=== PATIENT | female | born 1945 | race American Indian/Alaskan Native ===

== ENCOUNTER 2016-10-17 10:52 | Day surgery (SDC) | payer MEDICARE ==
[2016-10-17] MEDS ORDERED: NACL 0.9% 1000 ML 1,000 ML ONE (11:10)
[2016-10-17] MEDS ORDERED: NORMODYNE IV ONE (11:44)
--- NOTE | 2016-10-17 12:27 | Anesthesia Day of Surgery ---
Anesthesia Day of Surgery - Day of Surgery Patient Examined: Yes Patient H&P Reviewed: Yes Patient is NPO: Yes Beta Blockers: Yes
--- NOTE | 2016-10-17 12:29 | Anesthesia Consultation ---
Anesthesia Consult and Med Hx Date of service: 10/17/16 - Airway Anesthetic Teeth Evaluation: Dentures, Edentulous ROM Head & Neck: Adequate Mental/Hyoid Distance: Adequate Mallampati Class: Class II Intubation Access Assessment: Probably Good - Pulmonary Exam CTA: Yes - Cardiac Exam Cardiac Exam: RRR - Pre-Operative Health Status ASA Pre-Surgery Classification: ASA3 Proposed Anesthetic Plan: MAC - Pulmonary Hx Smoking: No Hx Asthma: Yes - Cardiovascular System Hx Hypertension: Yes Hx Heart Attack/AMI: No - Central Nervous System Hx Seizures: No CVA: No Hx Psychiatric Problems: Yes - Hematic Hx Anemia: Yes Hx Sickle Cell Disease: Yes ("NO CRISIS IN PAST") - Other Systems Hx Alcohol Use: No Hx Substance Use: No Hx Cancer: No - Additional Comments Anesthesia Medical History Comments: NAC
[2016-10-17] MEDS ORDERED: DIPRIVAN 10 MG/ML IV ONE (12:58)
[2016-10-17] MEDS ORDERED: NACL 0.9% 1000 ML 1,000 ML IV SCH (13:00)
--- NOTE | 2016-10-17 13:46 | Operative Report ---
Operative Report Operative Report: Date of procedure: 10/17/2016 Procedure: Esophagogastroduodenoscopy with multiple Mucosal biopsies. Attending physician: Fredy Self MD Wood Polisher: Fredy Self MD Indication: Patient is a 71-year-old female who presents history of recurrent epigastric pain with nausea and vomiting. An upper endoscopy is done to evaluate patient so that treatment may be directed based on the findings. 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 This procedure is done under these circumstances with her worsening symptoms, to assess patient so that treatment may be directed based on the findings. Consent: Informed consent was obtained after advising the patient and family regarding nature of this procedure, its indications, potential benefits as well as possible complications including but not limited to bleeding perforation and adverse reaction to medication, infection as well as other cardiopulmonary complications. An informed written and verbal consent was then obtained after due opportunity was provided for questions and answers. Monitoring: Patient was monitored continuously with pulse oximetry and electrocardiographic recordings as well as blood pressure recordings. Vital signs remained stable throughout this procedure with no untoward events. Preoperative assessment: Patient was assessed immediately prior to this procedure for capacity to tolerate monitored anesthesia care and moderate sedation as well as general anesthesia. Patient's ASA classification is 2, Mallampati class is 2, Hyomental distance is 3. Instrument: WindSimn video endoscope Medications: Propofol, given intravenously in divided doses. For details please refer to anesthesia records. Description of procedure: Patient was placed in the left lateral decubitus position after achieving sedation, the endoscope was introduced into the esophagus under direct vision. It was then advanced beyond the esophagus into the stomach . Patient was noted to have partial gastrectomy. Patient was noted to have a Billroth II anastomosis. Both limbs of the anastomosis were explored. The endoscope was subsequently withdrawn with careful inspection of all mucosal surfaces with the following findings. Findings: There was irregularity of the Z line. There was a nodule at the gastroesophageal junction which was biopsied. There was a nodule at the gastrojejunostomy anastomosis. This was again biopsied. Compared to her previous endoscopy, the stomach appeared fairly well-preserved and a prior CVA of bile gastritis has not record. The perianastomotic area appeared otherwise normal. Both the afferent and efferent limbs of the anastomosis appeared normal. Impression: Irregular Z line. Gastroesophageal junction nodule status post biopsies. Normal gastrojejunostomy anastomosis. Gastro jejunostomy anastomotic nodule status post biopsies. Plan: Continue treatment with bile acids sequestrants as patient has been doing. Continue to use antiemetics. Follow pathology report. If patient's symptoms do not improve, we may obtain an upright GI series. Additional recommendations will be made in follow-up.
--- NOTE | 2016-10-17 13:49 | Discharge Summary ---
Short Stay Discharge Plan Activity: advance as tolerated (over) Weight Bearing Status: Weight Bear as Tolerated (date) Diet: regular
--- NOTE | 2016-10-17 14:00 | Post Anesthesia Evaluation ---
- Post Anesthesia Evaluation Patient Participated: Yes Airway Patent: Yes Stable Respiratory Function: Yes Temp > 96.8F: Yes Pain Manageable: Yes Adequeate Hydration: Yes Anesthesia Complications: No Block Receding Appropriately: Not Applicable
[2016-10-17 14:04] VITALS: BP 170/72
== END 2016-10-17 10:53 | disposition home or self-care (01) ==
LOC: GIO 10:52
PROVIDERS: ATTEND Internal Medicine Gastroenterology
DX: K29.50 Unspecified chronic gastritis without bleeding (principal); K22.8 Other specified diseases of esophagus; K21.0 Gastro-esophageal reflux disease with esophagitis; J45.909 Unspecified asthma, uncomplicated; I10 Essential (primary) hypertension; D57.1 Sickle-cell disease without crisis; Z90.3 Acquired absence of stomach [part of]; Z98.0 Intestinal bypass and anastomosis status; Z88.8 Allergy status to other drugs, medicaments and biological substances; Z88.5 Allergy status to narcotic agent; Z88.6 Allergy status to analgesic agent; Z91.041 Radiographic dye allergy status; Z79.899 Other long term (current) drug therapy; Z80.3 Family history of malignant neoplasm of breast; Z82.49 Family history of ischemic heart disease and other diseases of the circulatory system; Z81.8 Family history of other mental and behavioral disorders
CPT/HCPCS: 43239; 88305; 88342; J2704; J7030

== ENCOUNTER 2018-10-29 10:58 | Day surgery (SDC) | payer MEDICARE ==
[2018-10-29] MEDS ORDERED: NACL 0.9% 1000 ML 1,000 ML IV SCH (13:10)
--- NOTE | 2018-10-29 13:16 | Anesthesia Consultation ---
Anesthesia Consult and Med Hx - Airway Anesthetic Teeth Evaluation: Good, Chipped ROM Head & Neck: Adequate Mental/Hyoid Distance: Adequate Mallampati Class: Class II Intubation Access Assessment: Probably Good - Pulmonary Exam CTA: Yes - Cardiac Exam Cardiac Exam: RRR - Pre-Operative Health Status ASA Pre-Surgery Classification: ASA2 Proposed Anesthetic Plan: MAC - Pulmonary Hx Smoking: No Hx Asthma: Yes - Cardiovascular System Hx Hypertension: Yes Hx Heart Attack/AMI: No - Central Nervous System Hx Seizures: No CVA: No Hx Psychiatric Problems: Yes - Hematic Hx Anemia: Yes Hx Sickle Cell Disease: Yes ("NO CRISIS IN PAST") - Other Systems Hx Alcohol Use: No Hx Substance Use: No Hx Cancer: No
[2018-10-29 13:31] VITALS: BP 125/86
[2018-10-29] MEDS ORDERED: DIPRIVAN 10 MG/ML IV ONE ×2 (14:54→14:55)
== END 2018-10-29 10:59 | disposition home or self-care (01) ==
LOC: GIO 10:58
PROVIDERS: ATTEND Internal Medicine Gastroenterology
DX: R10.84 Generalized abdominal pain (principal); R63.4 Abnormal weight loss; I20.8 Other forms of angina pectoris; I10 Essential (primary) hypertension; H40.9 Unspecified glaucoma; J45.909 Unspecified asthma, uncomplicated; K21.9 Gastro-esophageal reflux disease without esophagitis; M19.90 Unspecified osteoarthritis, unspecified site; F32.9 Major depressive disorder, single episode, unspecified; Z98.890 Other specified postprocedural states; Z91.041 Radiographic dye allergy status; Z88.5 Allergy status to narcotic agent; Z88.8 Allergy status to other drugs, medicaments and biological substances; Z79.899 Other long term (current) drug therapy; Z98.49 Cataract extraction status, unspecified eye; Z98.51 Tubal ligation status; Z86.2 Personal history of diseases of the blood and blood-forming organs and certain disorders involving the immune mechanism; Z53.8 Procedure and treatment not carried out for other reasons
CPT/HCPCS: J2704; J7030

== ENCOUNTER 2018-10-29 15:40 | Inpatient (IN) | payer MEDICARE ==
--- NOTE | 2018-10-29 15:59 | Emergency Department Report ---
Blank Doc - Documentation Documentation: This is a 73-year-old female that presents with uncontrolled HTN. Stated had an EGD and procedure stopped due to abnormal PVCs. This initial assessment/diagnostic orders/clinical plan/treatment(s) is/are subject to change based on patient's health status, clinical progression and re- assessment by fellow clinical providers in the ED. Further treatment and workup at subsequent clinical providers discretion. Patient/guardians urged not to elope from the ED as their condition may be serious if not clinically assessed and managed. Initial orders include: 1- Patient sent to MAIN ED for further evaluation and treatment 2- labs 3- UA 4- EKG
[2018-10-29 16:21] LABS: Basophils % (Auto) 0.9 % (0.0-1.8); Eosinophils # (Auto) 0.1 K/mm3 (0.0-0.4); Eosinophils % (Auto) 2.1 % (0.0-4.3); Hematocrit 43.5 % (30.3-42.9); Hemoglobin 14.2 gm/dl (10.1-14.3); Mean Corpuscular HGB Conc 33 % (30-34); Mean Corpuscular Volume 90 fl (79-97); Monocytes # (Auto) 0.2 K/mm3 (0.0-0.8); Monocytes % (Auto) 7.1 % (0.0-7.3); Platelet Count 181 K/mm3 (140-440); Red Blood Count 4.85 M/mm3 (3.65-5.03); Red Cell Distribution Width 16.6 % (13.2-15.2)
[2018-10-29 16:31] LABS: INR 1.03 (0.87-1.13)
[2018-10-29 16:32] LABS: Partial Thromboplastin Time 30.7 Sec. (24.2-36.6)
[2018-10-29 16:44] LABS: BUN/Creatinine Ratio 13; Blood Urea Nitrogen 9 mg/dL (7-17); Calcium 10.2 mg/dL (8.4-10.2); Hemolysis Index 5
[2018-10-29] MEDS ORDERED: APRESOLINE IV ONE (16:58)
--- NOTE | 2018-10-29 17:03 | Emergency Department Report ---
ED General Adult HPI - General Chief complaint: Arrhythmia/Palpitations Stated complaint: HIGH BP Time Seen by Provider: 10/29/18 15:57 Source: patient, family Mode of arrival: Wheelchair Limitations: No Limitations - History of Present Illness Initial comments: 73-year-old female with history of hypertension, hypercholesterolemia, CVA presents to ED for abnormal heart rhythm. Patient was about to undergo an EGD, however that the seizure was stopped due to the patient's rhythm. Patient states at that time, she experienced left-sided chest pain and palpitations for approximately 5-10 minutes. Patient also hypertensive, reported she did not take her blood pressure medication today due to being nothing by mouth for the procedure. Patient states she normally takes amlodipine and lisinopril for blood pressure. It is unclear whether the patient was sent and the EGD there is no paperwork that accompanies her, however, patient's EKG here in the ED shows bigeminy. -: This afternoon Location: chest Radiation: non-radiation Quality: sharp Consistency: now resolved Improves with: none Worsens with: none Associated Symptoms: denies: diaphoresis, nausea/vomiting, shortness of breath - Related Data Home Medications Medication Instructions Recorded Confirmed Last Taken Sucralfate [Carafate] 1 gm PO Q6HR 10/17/16 10/29/18 10/28/18 AtorvaSTATin [Lipitor] 40 mg PO QHS 10/29/18 10/29/18 10/28/18 Folic Acid [Folvite] 1 mg PO QDAY 10/29/18 10/29/18 10/28/18 Lisinopril [Zestril] 20 mg PO QDAY 10/29/18 10/29/18 10/28/18 Metoclopramide [Reglan] 10 mg PO TID 10/29/18 10/29/18 10/28/18 amLODIPine [Norvasc] 10 mg PO DAILY 10/29/18 10/29/18 10/28/18 cloNIDine [Catapres] 0.2 mg PO TID 10/29/18 10/29/18 10/28/18 Allergies Allergy/AdvReac Type Severity Reaction Status Date / Time Iodine and Iodide Containing Allergy Intermediate Unknown Verified 10/29/18 15:44 Produc tramadol Allergy Intermediate Unknown Verified 10/29/18 15:44 codeine Allergy Anaphylaxis Verified 10/29/18 15:44 IVP DYE Allergy Intermediate Unknown Uncoded 10/14/16 11:54 ED Review of Systems ROS: Stated complaint: HIGH BP Other details as noted in HPI Comment: All other systems reviewed and negative Constitutional: denies: chills, fever Respiratory: denies: shortness of breath Cardiovascular: chest pain, palpitations Gastrointestinal: denies: nausea, vomiting ED Past Medical Hx - Past Medical History Hx Hypertension: Yes Hx Heart Attack/AMI: No Hx GERD: Yes Hx Sickle Cell Disease: Yes ("NO CRISIS IN PAST") Hx Arthritis: Yes Hx Seizures: No Hx Asthma: Yes - Social History Smoking Status: Never Smoker Substance Use Type: None - Medications Home Medications: Home Medications Medication Instructions Recorded Confirmed Last Taken Type Sucralfate [Carafate] 1 gm PO Q6HR 10/17/16 10/29/18 10/28/18 History AtorvaSTATin [Lipitor] 40 mg PO QHS 10/29/18 10/29/18 10/28/18 History Folic Acid [Folvite] 1 mg PO QDAY 10/29/18 10/29/18 10/28/18 History Lisinopril [Zestril] 20 mg PO QDAY 10/29/18 10/29/18 10/28/18 History Metoclopramide [Reglan] 10 mg PO TID 10/29/18 10/29/18 10/28/18 History amLODIPine [Norvasc] 10 mg PO DAILY 10/29/18 10/29/18 10/28/18 History cloNIDine [Catapres] 0.2 mg PO TID 10/29/18 10/29/18 10/28/18 History ED Physical Exam - General Limitations: No Limitations General appearance: alert, in no apparent distress - Head Head exam: Present: atraumatic, normocephalic - Eye Eye exam: Present: normal appearance, PERRL, EOMI - ENT ENT exam: Present: mucous membranes moist - Neck Neck exam: Present: normal inspection - Respiratory Respiratory exam: Present: normal lung sounds bilaterally. Absent: respiratory distress - Cardiovascular Cardiovascular Exam: Present: regular rate, normal rhythm - GI/Abdominal GI/Abdominal exam: Present: soft. Absent: distended, tenderness - Extremities Exam Extremities exam: Present: normal inspection - Neurological Exam Neurological exam: Present: alert, oriented X3 - Psychiatric Psychiatric exam: Present: normal affect, normal mood - Skin Skin exam: Present: warm, dry, intact, normal color ED Course Vital Signs 10/29/18 10/29/18 10/29/18 15:58 16:32 16:35 Temperature 97.6 F Pulse Rate 79 63 Respiratory 18 13 14 Rate Blood Pressure 206/90 195/78 O2 Sat by Pulse 99 100 Oximetry 10/29/18 10/29/18 10/29/18 17:01 17:31 18:01 Temperature Pulse Rate 60 48 L 41 L Respiratory 16 14 17 Rate Blood Pressure 196/77 193/67 186/66 O2 Sat by Pulse 99 73 L 99 Oximetry 10/29/18 10/29/18 10/29/18 18:31 19:01 19:31 Temperature Pulse Rate 47 L 60 54 L Respiratory 15 19 17 Rate Blood Pressure 180/73 183/73 180/73 O2 Sat by Pulse 99 Oximetry 10/29/18 10/29/18 19:50 20:35 Temperature 97.5 F L Pulse Rate 76 33 L Respiratory 16 16 Rate Blood Pressure 180/73 180/81 O2 Sat by Pulse 100 Oximetry - Reevaluation(s) Reevaluation #1: 10/29/18 17:03 Pt not currently in bigeminy on the monitor. She is in sinus rhythm w/ occasional PVCs ED Medical Decision Making - Lab Data Result diagrams: 10/29/18 16:07 10/29/18 16:01 - EKG Data -: EKG Interpreted by Nv EKG shows normal: sinus rhythm, QRS complexes Rate: normal - EKG Data Interpretation: other (ventricular bigeminy present) - Radiology Data Radiology results: report reviewed, image reviewed - Medical Decision Making 73-year-old female presents to the ED due to abnormal heart rhythm and severe hypertension during EGD. Patient reported experiencing palpitations and chest pain at that time. Currently resolved. Patient initially in bigeminy upon ED arrival. Repeat EKG shows resolution of bigeminy, no ST changes, with occasional PVCs. Troponin is normal. Patient given hydralazine for elevated blood pressure. Will admit to hospitalist for further management. - Differential Diagnosis ACS, arrythmia, pulm edema Critical care attestation.: If time is entered above; I have spent that time in minutes in the direct care of this critically ill patient, excluding procedure time. ED Disposition Clinical Impression: Bigeminy, Acute chest pain, Hypertensive urgency Disposition: [id number] OP ADMIT IP TO THIS HOSP Is pt being admited?: Yes Condition: Stable Time of Disposition: 18:11
--- NOTE | 2018-10-29 17:03 | XRay Report ---
CHEST 2 VIEWS INDICATION / CLINICAL INFORMATION: Chest Pain. COMPARISON: None available. FINDINGS: SUPPORT DEVICES: None. HEART / MEDIASTINUM: No significant abnormality. LUNGS / PLEURA: No significant pulmonary or pleural abnormality. No pneumothorax. ADDITIONAL FINDINGS: No significant additional findings. IMPRESSION: No acute findings. Signer Name: Daniel Bolivar MD Signed: 10/29/2018 4:58 PM Workstation Name: [id number]
--- NOTE | 2018-10-29 18:31 | History and Physical Report ---
History of Present Illness Chief complaint: My heart is beating funny History of present illness: 73 YO Female with HTN, HLD, CVA, GERD, OA, Severe Malnutrition, Asthma presents to ED for evaluation. Pt was about to undergo an EGD, when the patient experienced sudden onset of pain in her chest as well as chest palpitations. Pt subsequently transported to ED for evaluation. Pt states that her pain was 4/10, substernal, nonradiating, not worsened with exertion, not relieved with rest, sharp. Pt denies fever, chills, productive cough, shortness of breath, BRBPR, skin rash, recent ill contacts, unilateral leg pain/calf pain, hemoptysis, individual/family history of DVT/PE. Pt found to have symptoms consistent with Angina as well as diastolic CHF. Pt admitted to telemetry. Cardiology consulted in ED. NO prior admission for review. No medication listed for reconciliation at time of admission. Past History Past Medical History: arthritis, GERD, hypertension, hyperlipidemia, stroke Past Surgical History: No surgical history, Other (reviewed) Social history: , lives with family Family history: hypertension Medications and Allergies Allergies Allergy/AdvReac Type Severity Reaction Status Date / Time Iodine and Iodide Containing Allergy Intermediate Unknown Verified 10/29/18 15:44 Produc tramadol Allergy Intermediate Unknown Verified 10/29/18 15:44 codeine Allergy Anaphylaxis Verified 10/29/18 15:44 IVP DYE Allergy Intermediate Unknown Uncoded 10/14/16 11:54 Home Medications Medication Instructions Recorded Confirmed Last Taken Type Sucralfate [Carafate] 1 gm PO Q6HR 10/17/16 10/29/18 10/28/18 History AtorvaSTATin [Lipitor] 40 mg PO QHS 10/29/18 10/29/18 10/28/18 History Folic Acid [Folvite] 1 mg PO QDAY 10/29/18 10/29/18 10/28/18 History Lisinopril [Zestril] 20 mg PO QDAY 10/29/18 10/29/18 10/28/18 History Metoclopramide [Reglan] 10 mg PO TID 10/29/18 10/29/18 10/28/18 History amLODIPine [Norvasc] 10 mg PO DAILY 10/29/18 10/29/18 10/28/18 History cloNIDine [Catapres] 0.2 mg PO TID 10/29/18 10/29/18 10/28/18 History Review of Systems Constitutional: no weight loss, no weight gain, no fever, no chills Ears, nose, mouth and throat: no ear pain, no ear discharge, no tinnitis, no decreased hearing, no nose pain, no nasal congestion, no nasal discharge Breasts: no change in shape, no swelling, no mass Cardiovascular: chest pain, palpitations, no lightheadedness, no claudication, no phlebitis Respiratory: no cough, no cough with sputum, no excessive sputum, no hemoptysis Gastrointestinal: no abdominal pain, no nausea, no vomiting, no diarrhea, no constipation Genitourinary Female: no pelvic pain, no dysuria, no stress incontinence, no post void dribbling, no incomplete emptying Rectal: no pain, no incontinence, no bleeding Musculoskeletal: no neck stiffness, no neck pain, no shooting arm pain, no arm numbness/tingling, no low back pain, no shooting leg pain Integumentary: no rash, no redness, no sores Psychiatric: no anxiety, no memory loss, no change in sleep habits, no sleep disturbances, no insomnia, no change in libido Endocrine: no heat intolerance, no excessive thirst, no polydipsia, no polyuria, no nocturia Hematologic/Lymphatic: no easy bruising, no easy bleeding, no lymphadenopathy, no lymphedema Allergic/Immunologic: no urticaria, no allergic rhinitis, no wheezing, no persistent infections Exam - Constitutional Vitals: Temp Pulse Resp BP Pulse Ox 97.6 F 41 L 17 186/66 99 10/29/18 15:58 10/29/18 18:01 10/29/18 18:01 10/29/18 18:01 10/29/18 18:01 General appearance: Present: mild distress, cachectic - EENT Eyes: Present: PERRL ENT: hearing intact, clear oral mucosa - Neck Neck: Present: supple, normal ROM - Respiratory Respiratory effort: normal Respiratory: bilateral: CTA - Cardiovascular Heart Sounds: Present: S1 & S2. Absent: rub, click - Extremities Extremities: pulses symmetrical, No edema Peripheral Pulses: within normal limits - Abdominal General gastrointestinal: Present: soft, non-tender, non-distended, normal bowel sounds Female genitourinary: Present: normal - Integumentary Integumentary: Present: clear, warm, dry - Musculoskeletal Musculoskeletal: gait normal, strength equal bilaterally - Psychiatric Psychiatric: appropriate mood/affect, intact judgment & insight - Neurologic Neurologic: CNII-XII intact, moves all extremities Results - Labs CBC & Chem 7: 10/29/18 16:07 10/29/18 16:01 Labs: Abnormal lab results 10/29/18 10/29/18 Range/Units 16:01 16:07 WBC 2.7 L (4.5-11.0) K/mm3 Hct 43.5 H (30.3-42.9) % RDW 16.6 H (13.2-15.2) % Lymph % (Auto) 38.0 H (13.4-35.0) % Lymph # 1.0 L (1.2-5.4) K/mm3 Seg Neutrophils # 1.4 L (1.8-7.7) K/mm3 Chloride 107.6 H (98-107) mmol/L Glucose 127 H (65-100) mg/dL Assessment and Plan - Patient Problems (1) Angina at rest Current Visit: Yes Status: Acute Plan to address problem: Admit to telemetry, serial cardiac enzymes, ekg, stress test, cardiology consulted, d dimer, morphine, supplemental oxygen,nitro, aspirin, PPI therapy (2) Diastolic CHF Current Visit: Yes Status: Acute Qualifiers: Heart failure chronicity: acute Qualified Code(s): I50.31 - Acute diastolic (congestive) heart failure Plan to address problem: Admit to telemetry, echo, strict I/O, daily weight, bnp, monitor uop q shift, afterload reduction, chest x ray. (3) Hypertensive urgency Current Visit: No Status: Acute Plan to address problem: monitor BP q shift, continue medical management. (4) Severe malnutrition Current Visit: Yes Status: Acute Plan to address problem: Encourage increased protein intake, dietary supplementation (5) DVT prophylaxis Current Visit: Yes Status: Acute Plan to address problem: SCD to BLE while in bed, prophylactic lovenox
[2018-10-29] MEDS ORDERED: TYLENOL PO PRN (18:38)
[2018-10-29] MEDS ORDERED: BABY ASPIRIN PO STA ×2 (18:38→19:05)
[2018-10-29] MEDS ORDERED: ZOFRAN IV PRN (18:38)
[2018-10-29] MEDS ORDERED: SODIUM CHLORIDE FLUSH SYRINGE 10 ML IV PRN ×2 (18:38)
[2018-10-29] MEDS ORDERED: NITROSTAT SL PRN (18:38)
[2018-10-29] MEDS ORDERED: REGLAN 10 MG PO PRN (18:40)
[2018-10-29] MEDS ORDERED: REGLAN PO PRN (18:47)
[2018-10-29] MEDS ORDERED: BABY ASPIRIN ONE (19:34)
[2018-10-29] MEDS ORDERED: CATAPRES ONE (19:34)
[2018-10-29 19:45] LABS: Chol/HDL Ratio 2.24 %
[2018-10-29] MEDS: CATAPRES PO SCH ×2 (19:45→20:01)
[2018-10-29] MEDS ORDERED: CLONIDINE HCL 0.2 MG PO SCH (20:00)
[2018-10-29] MEDS: SODIUM CHLORIDE FLUSH SYRINGE 10 ML IV SCH (21:01)
[2018-10-29] MEDS: CARAFATE PO SCH (23:55)
[2018-10-30] MEDS: CARAFATE PO SCH ×2 (05:07→16:38)
[2018-10-30 06:03] LABS: Basophils % (Auto) 0.9 % (0.0-1.8); Eosinophils # (Auto) 0.1 K/mm3 (0.0-0.4); Eosinophils % (Auto) 4.2 % (0.0-4.3); Hemoglobin 13.2 gm/dl (10.1-14.3); Lymphocytes % (Auto) 37.2 % (13.4-35.0); Mean Corpuscular HGB Conc 31 % (30-34); Mean Corpuscular Volume 92 fl (79-97); Monocytes # (Auto) 0.2 K/mm3 (0.0-0.8); Monocytes % (Auto) 9.3 % (0.0-7.3); Platelet Count 150 K/mm3 (140-440); Red Blood Count 4.56 M/mm3 (3.65-5.03); Red Cell Distribution Width 16.6 % (13.2-15.2)
[2018-10-30 06:38] LABS: Alanine Aminotransferase 9 units/L (7-56); Albumin 3.6 g/dL (3.9-5); BUN/Creatinine Ratio 13; Blood Urea Nitrogen 10 mg/dL (7-17); Calcium 9.7 mg/dL (8.4-10.2); Hemolysis Index 10
[2018-10-30] MEDS ORDERED: LEXISCAN IV ONE ×2 (06:55→12:00)
[2018-10-30] MEDS ORDERED: CATAPRES PO SCH (08:00)
[2018-10-30] MEDS: REGLAN PO SCH ×2 (08:00→17:02)
[2018-10-30] MEDS: CATAPRES PO SCH ×2 (08:00→16:39)
[2018-10-30] MEDS ORDERED: FOLVITE PO SCH ×2 (10:00)
[2018-10-30] MEDS ORDERED: NON-FORMULARY (Folic Acid 1 MG) PO SCH (10:00)
[2018-10-30] MEDS ORDERED: NON-FORMULARY (Omeprazole 20 MG) PO SCH (10:00)
[2018-10-30] MEDS ORDERED: NON-FORMULARY (Nexium 40 MG) PO SCH (10:00)
[2018-10-30] MEDS ORDERED: LOVENOX SUB-Q SCH (10:00)
[2018-10-30] MEDS ORDERED: PROTONIX PO SCH ×2 (10:00)
[2018-10-30] MEDS ORDERED: ZESTRIL PO SCH (10:00)
[2018-10-30] MEDS ORDERED: NORVASC PO SCH (10:00)
--- NOTE | 2018-10-30 13:47 | Consultation ---
History of Present Illness Consult date: 10/30/18 Consult reason: chest pain History of present illness: The patient since 73-year-old woman history of chronic hypertension, managed with lisinopril, amlodipine and clonidine. Clonidine prescription is for 0.2 mg 3 times a day. Yesterday, she presented to the hospital for outpatient GI endoscopy. While awaiting the procedure, she was noted with elevated blood pressures, systolics of over 190. It was recalled that she was multiple antihypertensive medications in preparation for the test. In addition to uncontrolled hypertension, the patient was noted with isolated PVCs on the monitor. As a result the procedure was deferred, she was referred to the emergency room for blood pressure management. In the emergency room the patient ostensibly affirmed to a history of chest pain on review of systems, following which she was admitted by the medical service and emergency room physician, for NE evaluation. She has undergone negative ca rdiac enzyme profile, an echocardiogram was ordered, and a Lexiscan thallium stress test in addition to cardiac consultation. The patient has no exertional chest pain, no anginal type pain, no cardiac history. She has had a long history of GI problems including stomach surgery, as a result has symptoms of chronic gastroesophageal reflux. Serial ECGs show a sinus bradycardia and left ventricle hypertrophy voltage, no acute ischemia or infarction on the ECG. Chest x-ray shows normal cardiac silhouette, clear lungs. Past History Past Medical History: arthritis, GERD, hypertension, hyperlipidemia, stroke Past Surgical History: No surgical history, Other (reviewed) Social history: , lives with family Family history: hypertension Medications and Allergies Allergies Allergy/AdvReac Type Severity Reaction Status Date / Time Iodine and Iodide Containing Allergy Intermediate Unknown Verified 10/29/18 15:44 Produc tramadol Allergy Intermediate Unknown Verified 10/29/18 15:44 codeine Allergy Anaphylaxis Verified 10/29/18 15:44 IVP DYE Allergy Intermediate Unknown Uncoded 10/14/16 11:54 Home Medications Medication Instructions Recorded Confirmed Last Taken Type Sucralfate [Carafate] 1 gm PO Q6HR 10/17/16 10/29/18 10/28/18 History AtorvaSTATin [Lipitor] 40 mg PO QHS 10/29/18 10/29/18 10/28/18 History Folic Acid [Folvite] 1 mg PO QDAY 10/29/18 10/29/18 10/28/18 History Lisinopril [Zestril] 20 mg PO QDAY 10/29/18 10/29/18 10/28/18 History Metoclopramide [Reglan] 10 mg PO TID 10/29/18 10/29/18 10/28/18 History amLODIPine [Norvasc] 10 mg PO DAILY 10/29/18 10/29/18 10/28/18 History cloNIDine [Catapres] 0.2 mg PO TID 10/29/18 10/29/18 10/28/18 History Active Meds: Active Medications Acetaminophen (Tylenol) 650 mg PO Q4H PRN PRN Reason: Pain MILD(1-3)/Fever >100.5/GRANDA Amlodipine Besylate (Norvasc) 10 mg PO DAILY [facility] Atorvastatin Calcium (Lipitor) 40 mg PO QHS [facility] Last Admin: 10/29/18 21:37 Dose: 40 mg Documented by: Clonidine HCl (Catapres) 0.2 mg PO TID [facility] Last Admin: 10/30/18 08:00 Dose: Not Given Documented by: Enoxaparin Sodium (Lovenox) 40 mg SUB-Q QDAY [facility] Ergocalciferol (Vitamin D2) 50,000 unit PO Th [facility] Folic Acid (Folvite) 1 mg PO DAILY [facility] Lisinopril (Zestril) 20 mg PO QDAY [facility] Metoclopramide HCl (Reglan) 10 mg PO TID PRN PRN Reason: Nausea Metoclopramide HCl (Reglan) 10 mg PO TID [facility] Last Admin: 10/30/18 08:00 Dose: Not Given Documented by: Nitroglycerin (Nitrostat) 0.4 mg SL Q5M PRN PRN Reason: Chest Pain Ondansetron HCl (Zofran) 4 mg IV Q8H PRN PRN Reason: Nausea And Vomiting Pantoprazole Sodium (Protonix) 40 mg PO DAILY [facility] Sodium Chloride (Sodium Chloride Flush Syringe 10 Ml) 10 ml IV BID [facility] Last Admin: 10/29/18 21:01 Dose: 10 ml Documented by: Sodium Chloride (Sodium Chloride Flush Syringe 10 Ml) 10 ml IV PRN PRN PRN Reason: LINE FLUSH Sucralfate (Carafate) 1 gm PO Q6HR [facility] Last Admin: 10/30/18 05:07 Dose: 1 gm Documented by: Review of Systems Cardiovascular: chest pain, no orthopnea, no palpitations, no rapid/irregular heart beat, no edema, no syncope, no lightheadedness, no shortness of breath Physical Examination Vital Signs Temp Pulse Resp BP Pulse Ox 97.6 F 79 18 206/90 99 10/29/18 15:58 10/29/18 15:58 10/29/18 15:58 10/29/18 15:58 10/29/18 15:58 General appearance: no acute distress HEENT: Positive: PERRL Neck: Positive: neck supple Cardiac: Positive: Reg Rate and Rhythm Lungs: Positive: clear to auscultation Neuro: Positive: Grossly Intact Abdomen: Positive: Soft Female genitourinary: deferred Skin: Positive: Clear Extremities: Absent: edema Results 10/30/18 04:34 10/30/18 04:34 Cardiac Enzymes 10/30/18 Range/Units 04:34 AST 16 (5-40) units/L Coagulation 10/29/18 Range/Units 16:01 PT 13.2 (12.2-14.9) Sec. INR 1.03 (0.87-1.13) APTT 30.7 (24.2-36.6) Sec. Lipids 10/29/18 Range/Units 19:10 Triglycerides 42 (2-149) mg/dL Cholesterol 173 (50-199) mg/dL HDL Cholesterol 77 H (40-59) mg/dL Cholesterol/HDL Ratio 2.24 % CBC 10/29/18 10/30/18 Range/Units 16:07 04:34 WBC 2.7 L 2.6 L (4.5-11.0) K/mm3 RBC 4.85 4.56 (3.65-5.03) M/mm3 Hgb 14.2 13.2 (10.1-14.3) gm/dl Hct 43.5 H 42.0 (30.3-42.9) % Plt Count 181 150 (140-440) K/mm3 Lymph # 1.0 L 1.0 L (1.2-5.4) K/mm3 Wise # 0.2 0.2 (0.0-0.8) K/mm3 Eos # 0.1 0.1 (0.0-0.4) K/mm3 Baso # 0.0 0.0 (0.0-0.1) K/mm3 Comprehensive Metabolic Panel 10/29/18 10/30/18 Range/Units 16:01 04:34 Sodium 143 144 (137-145) mmol/L Potassium 3.8 4.2 (3.6-5.0) mmol/L Chloride 107.6 H 110.9 H (98-107) mmol/L Carbon Dioxide 23 23 (22-30) mmol/L BUN 9 10 (7-17) mg/dL Creatinine 0.7 0.8 (0.7-1.2) mg/dL Glucose 127 H 87 (65-100) mg/dL Calcium 10.2 9.7 (8.4-10.2) mg/dL AST 16 (5-40) units/L ALT 9 (7-56) units/L Alkaline Phosphatase 79 (35-129) units/L Total Protein 6.6 (6.3-8.2) g/dL Albumin 3.6 L (3.9-5) g/dL EKG interpretations - Telemetry EKG Rhythm: Sinus Bradycardia Assessment and Plan - Patient Problems (1) Uncontrolled hypertension Current Visit: Yes Status: Acute Plan to address problem: Patient's major complaint on presentation was uncontrolled hypertension, due to antihypertensives being on hold for her elective GI procedure. Blood pressure is now better controlled after resumption of her antihypertensives, therefore no adjustments on baseline blood pressure medications are necessary. (2) Atypical chest pain Current Visit: Yes Status: Acute Plan to address problem: Patient's chest pain is atypical, likely associated with chronic gastroesophageal reflux disease following chronic gastric surgery. A Lexiscan thallium stress test done today was normal, echocardiogram shows left ventricular systolic function well preserved with ejection fraction of 50-55%. No further cardiac workup is indicated, patient is stable for cardiac discharge. (3) Sinus bradycardia Current Visit: Yes Status: Acute Plan to address problem: Sinus bradycardia is likely associated with clonidine therapy, but we will get a thyroid stimulating hormone levels.
--- NOTE | 2018-10-30 15:51 | Discharge Summary ---
Providers - Providers Date of Admission: 10/29/18 18:38 Date of discharge: 10/30/18 Attending physician: CODY MCDERMOTT 10/29/18 Consult to Cardiac Rehabilitation [CONS] Routine Reason For Exam: Phase I 10/29/18 18:38 Consult to Cardiology [CONS] Routine Consulting Provider: CLOVER SALDAÑA Reason For Exam: angina [facility] Condition: Stable Hospital course: Patient is a 73 YO Female with HTN, HLD, CVA, GERD, OA, Severe Malnutrition, Asthma presents to ED for chest pains and uncontrolled bp. Pt was about to undergo an EGD, when the patient experienced sudden onset of chest pains. Discharge Diagnoses: Chest pains due to GERD most likely, negative stress test Ruled out Diastolic heart failure with normal 2vCXR and normal proBNP and exam Hypertensive urgency malignancy Severe malnutrition DVT prophylaxis Disposition: DC-01 TO HOME OR SELFCARE Time spent for discharge: 36 minutes Core Measure Documentation - Palliative Care Palliative Care/ Comfort Measures: Not Applicable - Core Measures Any of the following diagnoses?: none - VTE Discharge Requirements Deep Vein Thrombosis/Pulmonary Embolism Present on Admission: No Has pt received <5 days of overlap therapy or INR<2.0: No Anticoagulant overlap therapy prescribed at discharge: No Contraindication No Overlap Therapy order at DC: Not Indicated Exam - Physical Exam Narrative exam: Gen: WDWN, NAD, Awake, Alert, Orientated HEENT: NCAT, EOMI, PERRL, OP Clear Neck: supple, no adenopathy, no thyromegaly, no JVD CVS/Heart: RRR, normal S1S2, pulses present bilaterally Chest/Lungs: CTA B, Symmetrical chest expansion, good air entry bilaterally GI/Abdomen: soft, NTND, good bowel sounds, no guarding or rebound /Bladder: no suprapubic tenderness, no CVA or paraspinal tenderness Extermity/Skin: no c/c/e, no obvious rash MSK: FROM x 4 Neuro: CN 2-12 grossly intact, no new focal deficits, right side old weakness Psych: calm - Constitutional Vitals: Temp Pulse Resp BP Pulse Ox 97.9 F 58 L 18 189/70 97 10/30/18 08:52 10/30/18 11:00 10/30/18 08:52 10/30/18 11:10 10/30/18 09:00 Plan Activity: other (no strenous activity unless cleared by PCP) Diet: low salt Follow up with: IRENA MALONE MD [Primary Care Provider] - 7 Days Prescriptions: AtorvaSTATin [Lipitor] 40 mg PO QHS #30 tablet hydrALAZINE [Apresoline TAB] 50 mg PO TID #90 tablet Sucralfate [Carafate] 1 gm PO Q6HR #30 oral.liqd cloNIDine [Catapres] 0.2 mg PO TID #90 tablet amLODIPine [Norvasc] 10 mg PO DAILY #30 tablet Lisinopril [Zestril TAB] 20 mg PO QDAY #30 tablet
[2018-10-30] MEDS ORDERED: APRESOLINE PO SCH (16:00)
[2018-10-30] MEDS: SODIUM CHLORIDE FLUSH SYRINGE 10 ML IV SCH (16:42)
[2018-10-30 17:42] VITALS: BP 152/68
--- NOTE | 2018-10-31 00:07 | Treadmill Report ---
THALLIUM STRESS TEST REPORT LEFT VENTRICLE: Left ventricular chamber size is within normal spread. Perfusion study demonstrates fairly homogeneous uptake of the tracer in all segments. A small apical defect is consistent with breast attenuation artifact. No significant reversible defects identified. Gated analysis suggests very mild left ventricular systolic dysfunction with ejection fraction calculated at 42%. CONCLUSION: No demonstrable ischemia on thallium perfusion imaging. Recommend clinical correlation and echocardiographic reassessment of left ventricular systolic function. [facility]# [id number] CA/NTS
[2018-11-01] MEDS ORDERED: VITAMIN D2 PO SCH (08:00)
== END 2018-10-30 17:45 | disposition home or self-care (01) | DRG 391 ==
LOC: ED 15:40 → 4A 18:38
PROVIDERS: ADMIT Internal Medicine; ATTEND Internal Medicine
DX: K21.9 Gastro-esophageal reflux disease without esophagitis (principal); E43 Unspecified severe protein-calorie malnutrition; Z68.1 Body mass index [BMI] 19.9 or less, adult; I16.0 Hypertensive urgency; I20.9 Angina pectoris, unspecified; E78.00 Pure hypercholesterolemia, unspecified; M19.90 Unspecified osteoarthritis, unspecified site; J45.909 Unspecified asthma, uncomplicated; E78.5 Hyperlipidemia, unspecified; R00.1 Bradycardia, unspecified; Z86.73 Personal history of transient ischemic attack (TIA), and cerebral infarction without residual deficits
CPT/HCPCS: 36415; 71046; 78452; 80048; 80053; 80061; 83880; 84443; 84484; 85025; 85379; 85610; 85730; 93005; 93010; 93017; 93306; G0378; A9270-GY; A9502; J0360; J2785